=== PATIENT | female | born 1975 | race African-American/Black ===

== ENCOUNTER 2016-08-19 07:53 | Emergency (ER) | payer MEDICAID ==
[~2016-08-19] VITALS: Ht 167.6 cm; Wt 86.0 kg
[~2016-08-19 07:53] MED LIST: MULT236L PO
[2016-08-19] MEDS ORDERED: IBUPROFEN 600MG TABLET PO ONE (09:15)
[2016-08-19 09:22] LABS: GLUCOSE URINE NEGATIVE (NEGATIVE); KETONES URINE NEGATIVE (NEGATIVE); LEUKOCYTE ESTERASE URINE 3+ (NEGATIVE); NITRITE URINE NEGATIVE (NEGATIVE); OCCULT BLOOD URINE NEGATIVE (NEGATIVE); PH URINE 7.5 (4.5-8.0); PROTEIN URINE NEGATIVE (NEGATIVE); UROBILINOGEN URINE 0.2 E.U./dL (0.2-1.0)
[2016-08-19 09:27] LABS: BASOPHILS % 1.6 % (0.0-2.0); HEMATOCRIT. 37.8 % (36.0-48.0); HEMOGLOBIN. 12.2 g/dL (12.0-16.0); LYMPHOCYTES % 17.1 % (20.0-50.0); MEAN CORPUSCULAR HEMOGLOBIN 31.1 pg (28.0-32.0); MEAN CORPUSCULAR HGB CONC 32.4 g/dL (31.0-37.0); MEAN CORPUSCULAR VOLUME 96.1 fL (81.0-99.0); MEAN PLATELET VOLUME 6.6 fl (7.4-10.4); MONOCYTES % 10.5 % (2.0-8.0); NEUTROPHILS % 68.8 % (40.0-76.0); PLATELET 340 x1000/uL (130-400); RED BLOOD CELL COUNT 3.93 mill/uL (4.2-5.4); RED CELL DISTRIBUTION WIDTH 13.7 % (11.6-14.6)
[2016-08-19 09:37] LABS: *AMPHETAMINES SCREEN URINE NEGATIVE (NEGATIVE); *BARBITURATES SCREEN URINE NEGATIVE (NEGATIVE); *BENZODIAZEPINES SCREEN URINE NEGATIVE (NEGATIVE); *COCAINE SCREEN URINE NEGATIVE (NEGATIVE); CANNABINOID URINE SCREEN NEGATIVE (NEGATIVE); ECSTASY MDMA SCREEN URINE NEGATIVE (NEGATIVE); METHADONE URINE SCREEN NEGATIVE (NEGATIVE); OPIATES URINE SCREEN NEGATIVE (NEGATIVE); PHENCYCLIDINE URINE SCREEN NEGATIVE (NEGATIVE)
[2016-08-19 09:40] LABS: CLARITY URINE SL HAZY (CLEAR); COLOR URINE PALE YELLOW (YELLOW)
[2016-08-19 09:41] LABS: ALANINE AMINOTRANSFERASE 14 IU/L (13-61); ALBUMIN 3.1 g/dL (3.4-5.0); ANION GAP 9; CALCIUM 8.5 mg/dL (8.5-10.1); CARBON DIOXIDE 30 mEq/L (21-32); CHLORIDE 105 mEq/L (98-107); INDEX HEMOLYSI 1 (1-3); INDEX ICTERIC 1 (1-4); INDEX LIPEMIC 1 (1-3); LIPASE 310 IU/L (73-393); UREA NITROGEN BLOOD 10 mg/dL (7-21); eGFR > 60 mL/min (>60)
[2016-08-19 09:55] LABS: HCG SCREEN NEGATIVE
[2016-08-19 09:59] LABS: BACTERIA URINE TRACE; RBC URINE 0-2 /hpf (0-2); SQUAMOUS EPITHELIAL CELL URINE 1+ /lpf (RARE/1+)
[2016-08-19 10:30] VITALS: BP 120/79
[2016-08-19] MEDS ORDERED: ACETAMINOPHEN 325MG TABLET PO ONE (11:00)
== END 2016-08-19 11:27 | disposition home or self-care (01) ==
LOC: ER 08:07
DX: N39.0 Urinary tract infection, site not specified (principal); A59.01 Trichomonal vulvovaginitis; I10 Essential (primary) hypertension; F17.210 Nicotine dependence, cigarettes, uncomplicated; F15.10 Other stimulant abuse, uncomplicated
CPT/HCPCS: 36415; 80053; 80305; 81001; 83690; 84703; 85025; 87210; 87591; 99284; Z7610